=== PATIENT | male | born 1980 | race African-American/Black ===

== ENCOUNTER 2017-05-13 10:38 | Emergency (ER) | payer SELFPAY ==
--- NOTE | 2017-05-13 12:01 | ER Document Report ---
ED Medical Screen (RME) - General Chief Complaint: Flu Symptoms Stated Complaint: FEVER COUGH Time Seen by Provider: 05/13/17 11:50 Mode of Arrival: Ambulatory Information source: Patient Notes: Patient is a 36 year old male with a history of asthma presents to the emergency department complaining of multiple symptoms including fever, cough, and shortness of breath onset a week ago. Patient also complains of chest tightness, headache with coughing, runny nose, dizziness, vomiting, and nausea. Patient denies runny nose. Patient states that his fever peaked at 104. Patient also states that he took Tylenol and Motrin. Patient is tachycardic. Lungs clear to auscultation bilaterally. Oral mucosa moist. Abdomen is soft and non tender. I have greeted and performed a rapid initial assessment of this patient. A comprehensive ED assessment and evaluation of the patient, analysis of test results and completion of the medical decision making process will be conducted by additional ED providers. TRAVEL OUTSIDE OF THE [place] IN LAST 30 DAYS: No - Related Data Allergies/Adverse Reactions: No Known Allergies Allergy (Unverified 05/13/17 10:41) Past Medical History - Social History Frequency of alcohol use: Rare Drug Abuse: None Renal/ Medical History: Denies: Hx Peritoneal Dialysis Physical Exam - Vital signs Vitals: Temp Pulse Resp BP Pulse Ox 102.9 F H 122 H 20 116/65 99 05/13/17 10:47 05/13/17 10:47 05/13/17 10:47 05/13/17 10:47 05/13/17 10:47 Course - Vital Signs Vital signs: Temp Pulse Resp BP Pulse Ox 102.9 F H 122 H 20 116/65 99 05/13/17 10:47 05/13/17 10:47 05/13/17 10:47 05/13/17 10:47 05/13/17 10:47 Scribe Documentation - Scribe Written by Dottie:: Dottie De Paz, 05/13/2017 12:10 acting as scribe for :: Janet
[2017-05-13] MEDS ORDERED: ACETAMINOPHEN 325 MG TABLET PO ONE (12:33)
[2017-05-13] MEDS ORDERED: NORMAL SALINE 1000 ML 1,000 ML IV ONE ×2 (12:33→14:41)
--- NOTE | 2017-05-13 12:37 | RADIOLOGY REPORT (SQ) ---
EXAM DESCRIPTION: CHEST PA/LAT COMPLETED DATE/TIME: 05/13/2017 12:25 pm REASON FOR STUDY: SOB, CP COMPARISON: None. EXAM PARAMETERS: NUMBER OF VIEWS: two views TECHNIQUE: Digital Frontal and Lateral radiographic views of the chest acquired. RADIATION DOSE: NA LIMITATIONS: none FINDINGS: LUNGS AND PLEURA: No opacities, masses or pneumothorax. No pleural effusion. MEDIASTINUM AND HILAR STRUCTURES: No masses or contour abnormalities. HEART AND VASCULAR STRUCTURES: Heart normal size. No evidence for failure. BONES: No acute findings. HARDWARE: None in the chest. OTHER: No other significant finding. IMPRESSION: NO SIGNIFICANT RADIOGRAPHIC FINDING IN THE CHEST. TECHNICAL DOCUMENTATION: JOB ID: [id number] [employer]- All Rights Reserved
--- NOTE | 2017-05-13 13:31 | EKG REPORT ---
SEVERITY:- BORDERLINE ECG - SINUS RHYTHM BORDERLINE T WAVE ABNORMALITIES : Confirmed by: Javier Wang 13-May-2017 13:30:49
[2017-05-13 13:54] LABS: ABSOLUTE BASOPHILS # (AUTO) 0.1 10^3/uL (0.0-0.2); ABSOLUTE LYMPHOCYTES (AUTO) 2.2 10^3/uL (0.5-4.7); ABSOLUTE MONOCYTES (AUTO) 1.3 10^3/uL (0.1-1.4); BASOPHILS % (AUTO) 0.5 % (0-2); EOSINOPHILS % (AUTO) 0.1 % (0-6); HEMATOCRIT 31.3 % (37.9-51.0); HEMOGLOBIN 10.3 g/dL (13.5-17.0); HGB HCT DIFFERENCE -0.4; LYMPHOCYTES % (AUTO) 14.3 % (13-45); MEAN CORPUSCULAR HEMOGLOBIN 25.6 pg (27.0-33.4); MEAN CORPUSCULAR HGB CONC 32.7 g/dL (32.0-36.0); MEAN CORPUSCULAR VOLUME 78 fl (80-97); MONOCYTES % (AUTO) 8.6 % (3-13); RED BLOOD COUNT 4.01 10^6/uL (4.35-5.55); RED CELL DISTRIBUTION WIDTH 14.9 % (11.5-14.0); SEGMENTED NEUTROPHILS % (AUTO) 76.5 % (42-78); WHITE BLOOD COUNT 15.6 10^3/uL (4.0-10.5)
[2017-05-13 14:02] LABS: PROTHROMBIN TIME 16.9 SEC (11.4-15.4)
[2017-05-13 14:08] LABS: ALANINE AMINOTRANSFERASE 64 U/L (21-72); ALBUMIN 3.2 g/dL (3.5-5.0); ALKALINE PHOSPHATASE 100 U/L (38-126); ANION GAP 10 (5-19); ASPARTATE AMINO TRANSFERASE 36 U/L (17-59); BILIRUBIN,DIRECT 0.4 mg/dL (0.0-0.4); BILIRUBIN,TOTAL 0.5 mg/dL (0.2-1.3); BLOOD UREA NITROGEN 8 mg/dL (7-20); CALCIUM 8.6 mg/dL (8.4-10.2); CARBON DIOXIDE 22 mmol/L (22-30); CHLORIDE 108 mmol/L (98-107); CREATININE RESULT 0.95 mg/dL (0.52-1.25); GLUCOSE 99 mg/dL (75-110); LIPASE 71.3 U/L (23-300); POTASSIUM 3.8 mmol/L (3.6-5.0); SODIUM 139.8 mmol/L (137-145); TOTAL PROTEIN 6.9 g/dL (6.3-8.2)
[2017-05-13 14:26] LABS: APPEARANCE,URINE SLIGHTLY-CLOUDY; BILIRUBIN,URINE NEGATIVE (NEGATIVE); GLUCOSE, URINE NEGATIVE (NEGATIVE); KETONES,URINE TRACE mg/dL (NEGATIVE); LEUKOCYTE ESTERASE,URINE NEGATIVE (NEGATIVE); NITRITE,URINE NEGATIVE (NEGATIVE); PROTEIN,URINE 100 mg/dL (NEGATIVE); URINE SPECIFIC GRAVITY 1.026
[2017-05-13 14:37] LABS: VENOUS BLOOD BASE EXCESS 0.4 mmol/L; VENOUS BLOOD PCO2 30.4 mmHg (35-63); VENOUS BLOOD PH 7.5 (7.30-7.42)
--- NOTE | 2017-05-13 14:45 | ER Document Report ---
ED General - General Mode of Arrival: Ambulatory Information source: Patient TRAVEL OUTSIDE OF THE [place] IN LAST 30 DAYS: No - HPI Onset: Last week Onset/Duration: Persistent Quality of pain: Achy Pain Level: 3 Associated symptoms: Chills, Nonproductive cough, Fever, Shortness of breath. denies: Chest pain, Productive cough, Diarrhea, Vomiting, Sore throat Exacerbated by: Denies Relieved by: Denies Similar symptoms previously: No Recently seen / treated by doctor: No <PIO MCKAY - Last Filed: 05/13/17 20:49> <ROBERT MAX - Last Filed: 05/13/17 23:09> - General Chief Complaint: Flu Symptoms Stated Complaint: FEVER COUGH Time Seen by Provider: 05/13/17 11:50 Notes: Patient presents complaining of one-week history of cough, shortness of breath and intermittent fevers. Patient does report. Patient states he had nausea and vomiting 5 days ago but has not had any vomiting since then. Patient reports that he has had intermittent fevers and yesterday had a fever as high as 104. Patient states yesterday he developed abdominal tenderness. Denies any urinary complaints. Patient denies any recent travel. Patient is concerned that he might have the flu. (PIO MCKAY) - Related Data Allergies/Adverse Reactions: No Known Allergies Allergy (Unverified 05/13/17 10:41) Home Medications: Current Home Medications No Home Medications 05/13/17 [History] Past Medical History - General Information source: Patient - Social History Smoking Status: Former Smoker Frequency of alcohol use: Rare Drug Abuse: None Occupation: [employer] Lives with: Family Family History: Reviewed & Not Pertinent Patient has suicidal ideation: No Patient has homicidal ideation: No Pulmonary Medical History: Reports: Hx Asthma Renal/ Medical History: Denies: Hx Peritoneal Dialysis Surgical Hx: Other - Eye surgery <PIO MCKAY - Last Filed: 05/13/17 20:49> Review of Systems - Review of Systems Constitutional: Fever EENT: Nose congestion. denies: Throat pain Cardiovascular: Dizziness. denies: Chest pain Respiratory: Cough, Short of breath Gastrointestinal: Abdominal pain, Vomiting - 5 Days ago, none since. denies: Diarrhea, Nausea Genitourinary: No symptoms reported. denies: Burning, Dysuria, Flank pain Male Genitourinary: No symptoms reported Musculoskeletal: No symptoms reported. denies: Back pain Skin: No symptoms reported. denies: Rash Hematologic/Lymphatic: No symptoms reported Neurological/Psychological: No symptoms reported <PIO MCKAY - Last Filed: 05/13/17 20:49> Physical Exam - General General appearance: Alert In distress: None - HEENT Head: Normocephalic, Atraumatic Eyes: Normal Conjunctiva: Normal Nasal: Normal Mouth/Lips: Normal Mucous membranes: Dry Pharynx: Normal. No: Exudate, Retropharyngeal abscess Neck: Normal, Supple. No: Lymphadenopathy, Meningismus - Respiratory Respiratory status: No respiratory distress Chest status: Nontender Breath sounds: Nonproductive cough. No: Rales, Rhonchi, Stridor, Wheezing Chest palpation: Normal - Cardiovascular Rhythm: Regular Heart sounds: S1 appreciated, S2 appreciated Murmur: No - Abdominal Inspection: Normal Distension: No distension Bowel sounds: Normal Tenderness: Tender - Periumbilical - Back Back: Normal, Nontender. No: CVA tenderness - Extremities General upper extremity: Normal inspection, Normal ROM General lower extremity: Normal inspection, Normal ROM - Neurological Neuro grossly intact: Yes Cognition: Normal Ivonne Coma Scale Eye Opening: Spontaneous Ivonne Coma Scale Verbal: Oriented [place] Coma Scale Motor: Obeys Commands Ivonne Coma Scale Total: 15 - Psychological Associated symptoms: Normal affect, Normal mood - Skin Skin Temperature: Warm Skin Moisture: Dry Skin Color: Normal <PIO MCKAY - Last Filed: 05/13/17 20:49> - Vital signs Vitals: Temp Pulse Resp BP Pulse Ox 102.9 F H 122 H 20 116/65 99 05/13/17 10:47 05/13/17 10:47 05/13/17 10:47 05/13/17 10:47 05/13/17 10:47 Course - Laboratory Result Diagrams: 05/13/17 13:35 05/13/17 13:35 - Diagnostic Test Radiology reviewed: Reports reviewed <PIO MCKAY - Last Filed: 05/13/17 20:49> - Laboratory Result Diagrams: 05/13/17 13:35 05/13/17 13:35 <ROBERT MAX - Last Filed: 05/13/17 23:09> - Re-evaluation Re-evalutation: 05/13/17 14:30 Patient continues with epigastric and right upper quadrant abdominal pain. Additional tests ordered. 05/13/17 18:[address] echevarria who advises calling hospitalist for admission. 05/13/17 19:[address] Mendes regarding patient presentation, advises ordering either CT imaging of abdomen or MRI imaging of abdomen to further evaluate hepatic mass so that he can determine suitability of whether patient can safely be admitted here. Consulted with Dr. Kohli regarding additional imaging. Advises dedicated liver MRI 05/13/17 20:51 Bedside report and handoff given to Robert AVELAR. Family updated on plan of care at this time. (PIO MCKAY) 05/13/17 22:59 MRI shows "heterogenous mass with large fluid filled components." Reviewed MRI result with Dr. Mendes. Needs transferred. Reviewed with patient and family who would like 1. [facility], then 2. [facility] , then 3. [facility]. Called Ter[facility] Ca[facility] and am awaiting a call back. 05/13/17 23:[address] Muñoz who accepted patient. Pt is okay to eat dinner, they will not be taking him until the morning. (ROBERT MAX) - Vital Signs Vital signs: Temp Pulse Resp BP Pulse Ox 99.3 F 80 17 120/74 100 05/13/17 18:50 05/13/17 18:50 05/13/17 18:50 05/13/17 18:50 05/13/17 18:50 - Laboratory Laboratory results interpreted by me: 05/13/17 05/13/17 05/13/17 13:35 13:35 13:35 WBC 15.6 H RBC 4.01 L Hgb 10.3 L Hct 31.3 L MCV 78 L MCH 25.6 L RDW 14.9 H Absolute Neutrophils 12.0 H PT 16.9 H VBG pH VBG pCO2 Chloride 108 H Albumin 3.2 L Urine Protein Urine Ketones Urine Urobilinogen Urine Ascorbic Acid 05/13/17 05/13/17 13:35 14:13 WBC RBC Hgb Hct MCV MCH RDW Absolute Neutrophils PT VBG pH 7.50 H VBG pCO2 30.4 L Chloride Albumin Urine Protein 100 H Urine Ketones TRACE H Urine Urobilinogen 4.0 H Urine Ascorbic Acid 20 H 05/13/17 20:51 Labs- Entire Visit 05/13/17 05/13/17 05/13/17 12:00 13:35 13:35 WBC 15.6 H RBC 4.01 L Hgb 10.3 L Hct 31.3 L MCV 78 L MCH 25.6 L MCHC 32.7 RDW 14.9 H Plt Count 349 Seg Neutrophils % 76.5 Lymphocytes % 14.3 Monocytes % 8.6 Eosinophils % 0.1 Basophils % 0.5 Absolute Neutrophils 12.0 H Absolute Lymphocytes 2.2 Absolute Monocytes 1.3 Absolute Eosinophils 0.0 Absolute Basophils 0.1 PT 16.9 H INR 1.29 VBG pH VBG pCO2 VBG HCO3 VBG Base Excess Sodium Potassium Chloride Carbon Dioxide Anion Gap BUN Creatinine Est GFR ( Amer) Est GFR (Non-Af Amer) Glucose Lactic Acid Calcium Total Bilirubin Direct Bilirubin Neonat Total Bilirubin Neonat Direct Bilirubin Neonat Indirect Bili AST ALT Alkaline Phosphatase Total Protein Albumin Lipase Urine Color Urine Appearance Urine pH Ur Specific [place] Urine Protein Urine Glucose (UA) Urine Ketones Urine Blood Urine Nitrite Urine Bilirubin Urine Urobilinogen Ur Leukocyte Esterase Urine WBC (Auto) Urine RBC (Auto) Urine Bacteria (Auto) Urine Mucus (Auto) Urine Ascorbic Acid Influenza A (Rapid) NEGATIVE Influenza B (Rapid) NEGATIVE 05/13/17 05/13/17 05/13/17 13:35 13:35 13:35 WBC RBC Hgb Hct MCV MCH MCHC RDW Plt Count Seg Neutrophils % Lymphocytes % Monocytes % Eosinophils % Basophils % Absolute Neutrophils Absolute Lymphocytes Absolute Monocytes Absolute Eosinophils Absolute Basophils PT INR VBG pH 7.50 H VBG pCO2 30.4 L VBG HCO3 23.0 VBG Base Excess 0.4 Sodium 139.8 Potassium 3.8 Chloride 108 H Carbon Dioxide 22 Anion Gap 10 BUN 8 Creatinine 0.95 Est GFR ( Amer) > 60 Est GFR (Non-Af Amer) > 60 Glucose 99 Lactic Acid 0.9 Calcium 8.6 Total Bilirubin 0.5 Direct Bilirubin 0.4 Neonat Total Bilirubin Not Reportable Neonat Direct Bilirubin Not Reportable Neonat Indirect Bili Not Reportable AST 36 ALT 64 Alkaline Phosphatase 100 Total Protein 6.9 Albumin 3.2 L Lipase 71.3 Urine Color Urine Appearance Urine pH Ur Specific [place] Urine Protein Urine Glucose (UA) Urine Ketones Urine Blood Urine Nitrite Urine Bilirubin Urine Urobilinogen Ur Leukocyte Esterase Urine WBC (Auto) Urine RBC (Auto) Urine Bacteria (Auto) Urine Mucus (Auto) Urine Ascorbic Acid Influenza A (Rapid) Influenza B (Rapid) 05/13/17 14:13 WBC RBC Hgb Hct MCV MCH MCHC RDW Plt Count Seg Neutrophils % Lymphocytes % Monocytes % Eosinophils % Basophils % Absolute Neutrophils Absolute Lymphocytes Absolute Monocytes Absolute Eosinophils Absolute Basophils PT INR VBG pH VBG pCO2 VBG HCO3 VBG Base Excess Sodium Potassium Chloride Carbon Dioxide Anion Gap BUN Creatinine Est GFR ( Amer) Est GFR (Non-Af Amer) Glucose Lactic Acid Calcium Total Bilirubin Direct Bilirubin Neonat Total Bilirubin Neonat Direct Bilirubin Neonat Indirect Bili AST ALT Alkaline Phosphatase Total Protein Albumin Lipase Urine Color YELLOW Urine Appearance SLIGHTLY-CLOUDY Urine pH 5.0 Ur Specific [place] 1.026 Urine Protein 100 H Urine Glucose (UA) NEGATIVE Urine Ketones TRACE H Urine Blood NEGATIVE Urine Nitrite NEGATIVE Urine Bilirubin NEGATIVE Urine Urobilinogen 4.0 H Ur Leukocyte Esterase NEGATIVE Urine WBC (Auto) 5 Urine RBC (Auto) 2 Urine Bacteria (Auto) TRACE Urine Mucus (Auto) MANY Urine Ascorbic Acid 20 H Influenza A (Rapid) Influenza B (Rapid) (PIO MCKAY) Discharge <PIO MCKAY - Last Filed: 05/13/17 20:49> <ROBERT MAX - Last Filed: 05/13/17 23:09> - Discharge Clinical Impression: Mass of right lobe of liver Condition: Stable Disposition: [facility]
[2017-05-13] MEDS ORDERED: KETOROLAC TROMETHAMINE INJ/PF 30 MG/1 ML SDV IV ONE (16:39)
--- NOTE | 2017-05-13 18:19 | RADIOLOGY REPORT (SQ) ---
EXAM DESCRIPTION: U/S ABDOMEN LIMITED W/O DOP COMPLETED DATE/TIME: 05/13/2017 6:04 pm REASON FOR STUDY: epig, RUQ pain COMPARISON: None. TECHNIQUE: Dynamic and static grayscale images acquired of the abdomen and recorded on PACS. Additio nal selected color Doppler and spectral images recorded. LIMITATIONS: None. FINDINGS: PANCREAS: No masses. Visualized pancreatic duct normal caliber. LIVER: Hypoechoic mass within the right hepatic lobe measuring 5.0 x 4.1 x 6.9 cm. No additional les ions identified. LIVER VASCULATURE: Normal directional flow of the main portal vein and hepatic veins. GALLBLADDER: No stones. Normal wall thickness. No pericholecystic fluid. ULTRASOUND-DETECTED DOUGHERTY'S SIGN: Negative. INTRAHEPATIC DUCTS AND COMMON DUCT: CBD and intrahepatic ducts normal caliber. No filling defects. INFERIOR VENA CAVA: Normal flow. AORTA: No aneurysm. RIGHT KIDNEY: Normal size. Normal echogenicity. No solid or suspicious masses. No hydronephrosis. No calcifications. PERITONEAL AND RIGHT PLEURAL SPACE: No ascites or effusions. OTHER: No other significant findings. IMPRESSION: INDETERMINATE 6.9 CM MASS WITHIN THE RIGHT HEPATIC LOBE. RECOMMEND DEDICATED LIVER MRI OR THREE-PHASE LIVER CT FOR FURTHER CHARACTERIZATION. NO ADDITIONAL ACUTE OR SIGNIFICANT FINDINGS. TECHNICAL DOCUMENTATION: JOB ID: [id number] [id number]- All Rights Reserved
--- NOTE | 2017-05-13 22:06 | RADIOLOGY REPORT (SQ) ---
EXAM DESCRIPTION: MRI ABDOMEN COMBO COMPLETED DATE/TIME: 05/13/2017 9:47 pm REASON FOR STUDY: liver MRI, evaluate hepatic mass COMPARISON: Ultrasound dated 05/13/2017. TECHNIQUE: Multiplanar multisequence imaging performed without and with contrast including sagittal, axial and coronal T2, axial T1, axial gradient fat sat T1, axial, sagittal and coronal fat sat T1 po st contrast. CONTRAST TYPE AND DOSE: 20 mL Prohance. RENAL FUNCTION: GFR > 60. LIMITATIONS: None. FINDINGS: LIVER: Heterogenous mass measuring approximately 6.3 x 7 cm. Heterogenous enhancement wit h fairly large cystic or fluid filled areas. No dilated ducts. CBD normal. SPLEEN: Normal size. No focal lesions. PANCREAS: No masses. No adjacent inflammation or peripancreatic fluid collections. Pancreatic duct no t dilated. GALLBLADDER: No masses. No stones. No gallbladder wall thickening or pericholecystic fluid. ADRENAL GLANDS: No significant masses or asymmetry. RIGHT KIDNEY AND URETER: No masses. No hydronephrosis. LEFT KIDNEY AND URETER: No masses. No hydronephrosis. AORTA AND VESSELS: No aneurysm. No dissection. Renal arteries, SMA, celiac without stenosis. RETROPERITONEUM: No retroperitoneal adenopathy, hemorrhage or masses. BOWEL: No visualized masses. No inflammation. No significant dilatation. ABDOMINAL WALL AND PERITONEUM: No hernias. No free fluid. BONES: No acute or significant findings. OTHER: No other significant finding. IMPRESSION: HETEROGENOUS MASS WITH LARGE FLUID FILLED COMPONENTS. POSSIBLE ETIOLOGIES INCLUDE INFEC TION WITH ABSCESS OR TUMOR WITH NECROSIS. TECHNICAL DOCUMENTATION: JOB ID: [id number] [employer]- All Rights Reserved
[2017-05-14] MEDS ORDERED: ACETAMINOPHEN 325 MG TABLET PO ONE (02:37)
[2017-05-14 03:29] VITALS: BP 102/61
== END 2017-05-14 03:52 | disposition short-term general hospital (02) ==
LOC: ER 10:38
DX: R16.0 Hepatomegaly, not elsewhere classified (principal); R50.9 Fever, unspecified; R05 Cough; R06.02 Shortness of breath; R10.13 Epigastric pain; R10.11 Right upper quadrant pain; Z87.891 Personal history of nicotine dependence
CPT/HCPCS: 93005; 99285; 96361; 96374; 36415; 87040; 87086; 83690; 85025; 85610; 80053; 81001; 82803; 83605; 87804; 74183; 71020; 76705; 93010; A9576; J1885; J7030